=== PATIENT | male | born 2000 | race Caucasian/White ===

== ENCOUNTER 2024-05-02 16:14 | Observation (INO) | payer OTHER ==
[~2024-05-02] VITALS: Ht 188 cm; Wt 99.5 kg
[2024-05-02 18:28] VITALS: BP 124/65; TEMP 98.2; O2SAT 99
[2024-05-02 20:00] VITALS: BP 141/83; TEMP 98.1; O2SAT 99
[2024-05-02] MEDS ORDERED: ONDANSETRON 4MG 2ML VIAL IV PRN ×2 (20:30→22:35)
[2024-05-02] MEDS ORDERED: PIPERACILLIN/TAZOBACTAM SOD 3.375 GM in D5W MINI-BAG PLUS 50 ML IV SCH (20:30)
[2024-05-02] MEDS ORDERED: PROMETHAZINE 25MG/ML 1ML VIAL IV PRN (20:30)
[2024-05-02] MEDS ORDERED: MORPHINE 2 MG/ML 1ML VIAL IV PRN ×4 (20:30→22:35)
[2024-05-02] MEDS ORDERED: LIDOCAINE 2% 100MG/5ML SDV (FOR ANES.) As Ordered ONE (20:48)
[2024-05-02] MEDS ORDERED: propofoL 200 MG/20 ML VIAL As Ordered ONE (20:48)
[2024-05-02] MEDS ORDERED: ROCURONIUM BROMIDE 50MG/5ML VIAL As Ordered ONE (20:48)
[2024-05-02] MEDS ORDERED: MIDAZOLAM INJ 2MG/2ML VIAL As Ordered ONE (20:49)
[2024-05-02] MEDS ORDERED: fentaNYL 250 MCG/5 ML INJECTION As Ordered ONE (20:49)
[2024-05-02] MEDS ORDERED: KETOROLAC 30 MG/ML 1ML VIAL IV SCH (21:00)
[2024-05-02] MEDS: LevoFLOXacin 500MG/100ML IV BAG As Ordered ONE (21:39)
[2024-05-02] MEDS ORDERED: KETOROLAC 60MG 2ML VIAL As Ordered ONE (21:46)
[2024-05-02] MEDS ORDERED: ACETAMINOPHEN 1000MG 100ML IV BAG As Ordered ONE (21:46)
[2024-05-02] MEDS ORDERED: ONDANSETRON 4MG 2ML VIAL As Ordered ONE (21:46)
[2024-05-02] MEDS ORDERED: SUGAMMADEX SODIUM 500 MG/5 ML VIAL (BRIDION) As Ordered ONE (21:59)
[2024-05-02] MEDS ORDERED: fentaNYL 100 MCG/2 ML INJECTION As Ordered ONE (22:13)
[2024-05-02] MEDS ORDERED: fentaNYL 100 MCG/2 ML INJECTION IV PRN (22:35)
[2024-05-02] MEDS ORDERED: oxyCODONE 5MG TAB PO PRN (22:35)
[2024-05-02 23:33] VITALS: BP 149/80; TEMP 98.1; O2SAT 97
[2024-05-02] MEDS: PANTOPRAZOLE 40MG VIAL IV SCH (23:37)
[2024-05-02] MEDS: NS 1,000 ML IV SCH (23:38)
[2024-05-03] VITALS (8 sets, daily range): BP systolic 103–164; BP diastolic 44–77; TEMP 97–98.2; O2SAT 96–98
[2024-05-03] MEDS: KETOROLAC 30 MG/ML 1ML VIAL IV SCH (03:51)
[2024-05-03] MEDS ORDERED: LEVO1TAB39 PO (08:58)
[2024-05-03] MEDS ORDERED: LevoFLOXacin IV 500 MG in IV 1 EA IV SCH (21:00)
== END 2024-05-03 12:49 | disposition home or self-care (01) ==
LOC: M MSPAV 18:13 → INTOOBSV 18:13
PROVIDERS: ADMIT Internal Medicine Nephrology; ATTEND Surgery
DX: K35.80 Unspecified acute appendicitis (principal); R21 Rash and other nonspecific skin eruption; T36.0X5A Adverse effect of penicillins, initial encounter; J45.909 Unspecified asthma, uncomplicated; Z90.89 Acquired absence of other organs; F17.290 Nicotine dependence, other tobacco product, uncomplicated
CPT/HCPCS: 44970; 88304; 96374; 96375; 96376; C9113; J0131; J0665; J1885; J1956; J2250; J2405; J3010